=== PATIENT | male | born 1975 | race Caucasian/White ===

== ENCOUNTER → 2019-05-05 10:50 | Outpatient (CLI) | payer OTHER, SELFPAY ==
--- NOTE | ~2019-05-05 | CT_ITS ---
EXAMINATION:CT chest wo con DATE: 05/05/2019 11:09 INDICATION: Lung nodule. TECHNIQUE: Computed tomography (CT) of the chest was performed without intravenous contrast. Automate d exposure control and iterative reconstruction technique were employed. The dose-length product (DLP ) was 93.69 mGy-cm. COMPARISON: CT cervical spine 04/12/2018 FINDINGS: There is mild scarring at the lung apices. There are greater than 10 scattered nodules in t he lungs measuring up to 6 mm. The nodules at right lung apex are unchanged from 04/12/2018. A calcifi ed left lung nodule is consistent with old granulomatous disease. No pleural effusion. The heart size is normal. No pericardial effusion. There is bilateral gynecomastia. There is mild thoracic spondylo sis. IMPRESSION: 1. Pulmonary nodules measuring up to 6 mm, probably benign. Consider a low-dose, noncontrast chest CT in 6-12 months. Reviewed, dictated and finalized at location A. UNTANT IMPRESSION: 1. Pulmonary nodules measuring up to 6 mm, probably benign. Consider a low-dose , noncontrast chest CT in 6-12 months.
== END ==
PROVIDERS: PCP Family Medicine; Visit Provider Nurse Practitioner Family
DX: R91.8 Other nonspecific abnormal finding of lung field (principal)
CPT/HCPCS: 71250

== ENCOUNTER 2021-08-05 17:35 | Emergency (ER) | payer OTHER, SELFPAY ==
--- NOTE | ~2021-08-05 | XR_ITS ---
EXAM: XR forearm RT 2V HISTORY: rt proximal ulnar forearm pain s/p hitting a tree yesterday . COMPARISON: None available. FINDINGS: Normal mineralization. No fracture or dislocation. No lytic or blastic lesion. Joint space s maintained. No erosion or periosteal change. Soft tissues within normal limits. IMPRESSION: No acute osseous finding in the right forearm. Reviewed, dictated and finalized at location K.
[2021-08-05 17:46] VITALS: BP 128/78; PULSE 68; RESP 16; TEMP 36.4; O2SAT 99
--- NOTE | 2021-08-05 18:11 | ED.UPPEXIN ---
HPI - Extremity Injury (Upper) General Chief Complaint: Extremity Injury, Upper Stated Complaint: Right Arm Pain Time Seen by Provider: 08/05/21 18:11 Source: patient, RN notes reviewed and old records reviewed Mode of arrival: ambulatory Limitations: no limitations History of Present Illness HPI narrative: 46-year-old male presents to the [facility] with right arm pain. Patient states that he was playing disc golf over the weekend when he hit his arm on a tree. No treatment prior to arrival. Discomfort with certain movements and picking objects up to the proximal forearm. No swelling, redness or bruising noted. No open wounds. Full range of motion of the elbow and wrist. Strong commercial print salesman noted. No snuffbox tenderness. Sensation intact in all 5 fingers with capillary refill under 2 seconds Related Data Allergies Allergy/AdvReac Type Severity Reaction Status Date / Time tree nut Allergy Unknown Unknown Verified 10/11/19 10:13 Review of Systems Review of Systems: All systems reviewed & are unremarkable except as noted in HPI and below Constitutional: Constitutional: Reports no additional constitutional complaints, Denies chills, Denies fever(s), Denies headache(s) and Denies weakness Eyes: Eyes: Reports no additional eye complaints ENT: Reports system reviewed and no additional complaints, except as documented, Denies vertigo, Denies dizziness and Denies headache(s) Cardiovascular: Cardiovascular: Reports no additional cardiovascular complaints, Denies chest pain, Denies syncope and Denies dyspnea Respiratory: Respiratory: Reports no additional respiratory complaints, Denies cough and Denies dyspnea Gastrointestinal: Gastrointestinal: Reports no additional gastrointestinal complaints, Denies abdominal pain, Denies nausea and Denies vomiting Musculoskeletal: Musculoskeletal: Reports as per HPI, Denies joint swelling and Denies numbness Comments: Proximal right forearm discomfort Integumentary/Breasts: Skin/Breast: Reports system reviewed and no additional complaints, except as docu, Denies erythema and Denies rash Neurologic: Reports system reviewed and no additional complaints, except as documented, Denies confusion, Denies vertigo, Denies dizziness, Denies syncope, Denies headache(s), Denies focal weakness, Denies numbness and Denies weakness Psychiatric: Psychiatric: Reports no additional psychiatric complaints and Denies confusion Allergic/Immunologic: Allergic/Immunologic: Reports no additional allergic/immunologic complaints PMFSH Past Medical History Medical History (Updated 08/05/21 @ 18:34 by Marilyn Rosa APRN) Lung nodules (~03/2018) Surgical History Surgical History (Updated 08/05/21 @ 18:19 by Marilyn Rosa APRN) History of tonsillectomy Family History Family History Other Family history of malignant neoplasm of male breast Social History Social History Smoking status: Never smoker Alcohol intake: current Comments At the time of my signature, I reviewed and agree with the nursing past medical, surgical, social, and family history. There is no relevant family history pertinent to the patient complaint. Exam Const: General: healthy appearing and no acute distress; No confusion Nutritional Appearance: well nourished Orientation/consciousness: patient oriented x3 and No confusion Limitations: no limitations HENMT: Head: normal to inspection Ears: external ears normal Eyes: Pupils: Equal, round and reactive pupils present Neck: Neck: normal visual inspection, no lymphadenopathy and no meningeal signs Chest: Chest palpation & inspection: normal inspection of the chest Resp: Effort & Inspection: normal respiratory effort and no use of accessory muscles Auscultation: clear to auscultation bilaterally, no crackles, no rales, no rhonchi and no wheezes Cardio: Rate: regular rat
== END 2021-08-05 18:37 | disposition home or self-care (01) ==
PROVIDERS: Emergency Provider Nurse Practitioner; PCP Family Medicine
DX: S50.11XA Contusion of right forearm, initial encounter (principal); W22.09XA Striking against other stationary object, initial encounter
CPT/HCPCS: 73090; 99213; G0463